=== PATIENT | female | born 1985 | race Caucasian/White ===

== ENCOUNTER 2017-10-25 06:43 | Emergency (ER) | payer BC ==
[2017-10-25] MEDS ORDERED: Aspirin 81 mg CHEW TAB* 81 MG TAB.CHEW PO ONE (07:13)
[2017-10-25 07:49] LABS: ABS Basophils 0.2 10^3/ul (0-0.2); ABS Eosinophils 0.1 10^3/ul (0-0.6); ABS Lymphocytes 2.1 10^3/ul (1.0-4.8); ABS Monocytes 0.5 10^3/ul (0-0.8); ABS Neutrophils 7.9 10^3/ul (1.5-7.7); ABS Nucleated RBC 0 10^3/ul; Eosinophil % 0.5 % (0-6); Hematocrit 38 % (35-47); Hemoglobin 12.4 g/dl (12.0-16.0); Mean Corpuscular HGB Conc 33 g/dl (31-36); Mean Corpuscular Hemoglobin 25 pg (27-31); Mean Corpuscular Volume 76 fL (80-97); Mean Platelet Volume 8.9 um3 (7.4-10.4); Nucleated Red Blood Cells % 0; Platelet Count 231 10^3/ul (150-450); Red Blood Count 5.04 10^6/ul (4.0-5.4); Red Cell Distribution Width 18 % (10.5-15); White Blood Count 10.7 10^3/ul (3.5-10.8)
[2017-10-25 07:56] LABS: INR 1.03 (0.77-1.02)
[2017-10-25 08:05] LABS: EGFR Non-African American 117.4 (>60)
--- NOTE | 2017-10-25 08:56 | RAD ---
HISTORY: Chest pain COMPARISONS: February 02, 2016 VIEWS: 4: Frontal dual-energy and lateral views of the chest. FINDINGS: CARDIOMEDIASTINAL SILHOUETTE: The cardiomediastinal silhouette is normal. MAR: The mar are normal. PLEURA: The costophrenic angles are sharp. No pleural abnormalities are noted. LUNG PARENCHYMA: The lungs are clear. ABDOMEN: The upper abdomen is clear. There is no subphrenic gas. BONES AND SOFT TISSUES: No bone or soft tissue abnormalities are noted. OTHER: None. IMPRESSION: NO ACTIVE CARDIOPULMONARY DISEASE.
[2017-10-25] MEDS ORDERED: Pantoprazole IV* 40 MG IV ONE (09:38)
[2017-10-25] MEDS ORDERED: Pantoprazole TAB (NF) 40 MG TAB PO ONE (09:45)
[2017-10-25] MEDS ORDERED: Ibuprofen TAB* 800 MG PO ONE (09:45)
[2017-10-25] MEDS ORDERED: Omeprazole CAP* 20 MG PO ONE (10:00)
[2017-10-25 10:06] VITALS: BP 113/95
--- NOTE | 2017-10-25 18:01 | ED ---
Skylar Berry Julia, scribed for Gloria Pavon MD on 10/25/17 at 0723 . HPI Chest Pain - HPI Summary HPI Summary: This patient is a 32 year old F presenting to [facility] with a chief complaint of mid-sternal chest pain since 04:30 this morning upon waking up. She states she was having difficulty getting out of bed with the onset of pain. Patient reports SOB with her chest pain. Patient denies nausea, vomiting, and diaphoresis. The patient rates the pain 8/10 in severity. SOB aggravated by walking. Pain aggravated by breathing. She states when she takes a breath it feels like someone is stabbing her or sitting on her chest. Patient has had right knee pain since 10/19/17 that feels like it will snap with walking. Pt denies hx of HTN, asthma, GERD, and DM. FMHx includes of her grandmother from cardiac disease at the age of 62. - History of Current Complaint Chief Complaint: EDChestPainROMI Hx Obtained From: Patient Onset/Duration: Started Hours Ago, Atraumatic, Still Present Time of Onset: 04:30 Timing: Constant, Lasting Hours Initial Severity: Moderate Current Severity: Moderate Pain Intensity: 8 Pain Scale Used: 0-10 Numeric Chest Pain Location: Mid Sternal Chest Pain Radiates: No Character: Heaviness, Sharp/Stabbing Aggravating Factor(s): Exertion, Deep Breaths Alleviating Factor(s): Nothing Associated Signs and Symptoms: Positive: Chest Pain, Shortness of Breath, Cough , Calf Pain/Swelling. Negative: Chills, Nausea, Vomiting, Wheezing Related History: Obesity - Allergy/Home Medications Allergies/Adverse Reactions: Allergies Allergy/AdvReac Type Severity Reaction Status Date / Time No Known Allergies Allergy Verified 10/25/17 06:49 PMH/Surg Hx/FS Hx/Imm Hx Previously Healthy: Yes Endocrine/Hematology History: Denies: Hx Diabetes, Hx Systemic Lupus Erythematosus Cardiovascular History: Denies: Hx Congestive Heart Failure, Hx Hypertension, Other Cardiovascular Problems/Disorders Respiratory History: Denies: Hx Asthma, Hx Chronic Obstructive Pulmonary Disease (COPD), Hx Pulmonary Embolism, Other Respiratory Problems/Disorders GI History: Denies: Hx Gastroesophageal Reflux Disease History: Denies: Hx Dialysis, Hx Renal Disease Musculoskeletal History: Denies: Hx Rheumatoid Arthritis - Cancer History Hx Chemotherapy: No - Surgical History Surgery Procedure, Year, and Place: appy, ., lap mayra Infectious Disease History: No Infectious Disease History: Denies: History Other Infectious Disease, Traveled Outside the [place] in Last 30 Days - Family History Known Family History: Positive: Cardiac Disease - grandmother age 62, Other - mulitple fam members requiring cholecystectomy - Social History Occupation: Employed Full-time Lives: With Family Alcohol Use: Occasionally Hx Substance Use: No Substance Use Type: Reports: None Smoking Status (MU): Former Smoker Type: Cigarettes Have You Smoked in the Last Year: No Review of Systems Negative: Fever, Skin Diaphoresis Eyes: Negative ENT: Negative Positive: Chest Pain Positive: Shortness Of Breath Negative: Abdominal Pain, Vomiting, Nausea Positive: no symptoms reported Positive: Myalgia - right knee pain Skin: Negative Neurological: Negative Psychological: Normal All Other Systems Reviewed And Are Negative: Yes Physical Exam - Summary Physical Exam Summary: Appearance: Ill-appearing, moderate pain distress, Obese, Pt speaks in full sentences, Pt is clutching anterior chest Skin: Warm, color reflects adequate perfusion Head: Normal Head/Face inspection Eyes: Conjunctiva clear ENT: Normal inspection Neck: Supple, no nodes, no JVD. Respiratory: Lungs clear, Normal breath sounds, no respiratory distress Cardio: RRR, No murmur, pulses normal, brisk capillary refill, chest pain is reproducible Abdomen: soft, nontender, no masses Bowel sounds: present Musculoskeletal: Strength Intact/ ROM intact. No edema. Right posterior calf tenderness, no swelling, no redness, no cord Psychological: Normal Neuro: Alert, muscle tone normal, no focal deficit Triage Information Reviewed: Yes Vital Signs On Initial Exam: Initial Vitals Temp Pulse Resp BP Pulse Ox 96.9 F 95 20 143/83 99 10/25/17 06:44 10/25/17 06:44 10/25/17 06:44 10/25/17 06:44 10/25/17 06:44 Vital Signs Reviewed: Yes Diagnostics - Vital Signs Vital Signs Temp Pulse Resp BP Pulse Ox 10/25/17 07:00 88 18 98 10/25/17 06:57 86 19 150/79 99 10/25/17 06:56 22 10/25/17 06:44 96.9 F 95 20 143/83 99 - Laboratory Result Diagrams: 10/25/17 07:35 10/25/17 07:35 Lab Statement: Any lab studies that have been ordered have been reviewed, and results considered in the medical decision making process. - Radiology CXR Radiology Interpretation Completed By: Radiologist - NO ACTIVE CARDIOPULMONARY DISEASE. ED Physician has reviewed this report. - EKG 0654 Cardiac Rate: NL EKG Rhythm: Sinus Rhythm - at [address] Segment: Non-Specific Ectopy: None EKG Interpretation: nml AVIVCT, nml QTc, nml axis no acute changes EKG Comparison: No Significant Change - 02/02/16 Re-Evaluation - Re-Evaluation 1 Re-Evaluation Time: 09:41 Change: Unchanged Comment: Still has discomfort. Pt is given results. Pt's is in the room. Pt is agreeable to discharge after providing medication for GERD. Pt will be given Ibuprofen and Protonix prior to discharge. 2 Re-Evaluation Time: 09:56 Change: Improved Comment: Pt would like work release for today and tomorrow and a prescription for Ibuprofen. Chest Pain Course/Dx - Course Course Of Treatment: Pt presents with CP and SOB beginning this morning. An EKG is of no acute concern. A CXR reveals no active disease or acute findings. Bloodwork is obtained and is WNL. Pt is given 800mg of Ibuprofen PO, 20mg Omeprazole, and 324mg of ASA PO. Pt declined anti-GERD medication as an RX. Results explained to patient. Lab results and CXR report are given to pt. Pt is agreeable to discharge. Pt will speak with Dr. Camilo about current symptoms and possible GERD treatment. - Chest Pain Differential Diagnosis/HQI/PQRI: Acute ID, ACS, Angina, Chest Wall, GI Disease, Lower Respiratory Infection, Pulmonary Embolism - Diagnoses Provider Diagnoses: Chest pain, GERD (gastroesophageal reflux disease), Elevated BP without diagnosis of hypertension Discharge - Sign-Out/Discharge Documenting (check all that apply): Discharge - Discharge Plan Condition: Stable Disposition: HOME Prescriptions: Ibuprofen TAB* [Motrin TAB* 800 MG] 800 mg PO Q6H #40 tab Patient Education Materials: Chest Pain (ED), Gastroesophageal Reflux Disease ( ED), Chest Wall Pain (ED) Forms: *Work Release Referrals: Adam Coronado DO [Primary Care Provider] - 2 Days Additional Instructions: Your EKG and Chest xray were normal. We have given you a copy of your labs which were also normal. We did not find a serious cause of your chest pain today that would need emergency treatment. You may have GERD causing chest pain, or musculoskeletal chest pain. You were given pantoprozole 40mg for GERD, and ibuprofen 800mg for musculoskeletal pain at 0945. Follow up with Dr. Coronado, and let him know that you had to come to the ER for chest pain. Dr. Pavon sent a prescription for ibuprofen 800mg every 6 hrs as needed #40, to your pharmacy, [facility] in [place]. Return to the ER if you have any new or worsening symptoms. - Billing Disposition and Condition Condition: STABLE Disposition: HOME The documentation as recorded by the Skylar jaime Julia accurately reflects the service I personally performed and the decisions made by , Gloria Pavon MD.
== END 2017-10-25 10:27 | disposition home or self-care (01) ==
LOC: ED 06:43
DX: R07.9 Chest pain, unspecified (principal); K21.9 Gastro-esophageal reflux disease without esophagitis; R03.0 Elevated blood-pressure reading, without diagnosis of hypertension; Z87.891 Personal history of nicotine dependence
CPT/HCPCS: 36415; 71046; 80053; 82550; 82553; 83605; 83735; 83880; 84443; 84484; 84702; 85025; 85379; 85610; 85730; 93005; 96374; 99283; A9270-GY

== ENCOUNTER 2019-04-08 08:20 | Inpatient (IN) | payer BC ==
[~2019-04-08 08:20] MED LIST: Buffered Lidocaine 1% SYRIN* 1 ML/SYRINGE INTRADERM ONE; Famotidine IV* 10 MG/ML 2 ML (20 mg) IV ONE; Lactated Ringers 1000 ML Bag* 1,000 ML IV SCH
--- OUTSIDE RECORDS SUMMARY | 2019-04-08 08:24 | XMS REPORT | Continuity of Care Document ---
:1985 External Reference #:[id number] Author Name Maggie Wray NP (transmitted by agent of provider Ann Cruz) Address [address] [facility], [address] [place] [id number] Care Team Providers Name Role Phone Adam Coronado DO - Family Care Team Information Air Conditioning Manager Medicine Problems Active Problems Provider Date Morbid obesity Tatiana Whittington MD Onset: 08/03/2015 Disturbance in sleep behavior Tatiana Whittington MD Onset: 08/03/2015 Social History Type Date Description Comments Sex Unknown ETOH Use Denies alcohol use Tobacco Use Start: Unknown Patient has never smoked Recreational Drug Use Never Used Drugs Smoking Status Reviewed: 02/24/19 Patient has never smoked Exercise Type/Frequency Exercises rarely Allergies, Adverse Reactions, Alerts Description No Known Drug Allergies Medications Active Medications SIG Qnty Indications Ordering Provider Date Mandibular Please fabricate G47.33 Maggie 02/24/2019 Advancement Device mandibular advance ALEXIS Wray device for sleep Device apnea Lo Loestrin Fe 1 by mouth per day Macarena Jay 1mg-10 MD Gabby mcg / 10 mcg Tablets Metformin HCL ER Macarena Jay MD Gabby 750mg Tablets ER 24HR Melatonex Unknown 3-10mg Tablets ER Iron 2 by mouth every Unknown 325(65Fe) mg day Tablets Immunizations CPT Code Status Date Vaccine Lot # [id number] Given 06/15/2015 Influenza Virus 3Yrs & Over Vital Signs Date Vital Result Comment 02/24/2019 1:47pm Height 61 inches 5'1" Weight 324.50 lb Heart Rate 96 /min BP Systolic Sitting 126 mmHg Lue large cuff BP Diastolic Sitting 76 mmHg Lue large cuff Respiratory Rate 24 /min O2 % BldC Oximetry 98 % On Ra BMI (Body Mass Index) 61.3 kg/m2 01/27/2019 1:41pm Height 61 inches 5'1" Weight 328.00 lb Heart Rate 88 /min BP Systolic Sitting 116 mmHg Lue large cuff BP Diastolic Sitting 74 mmHg Lue large cuff Respiratory Rate 16 /min O2 % BldC Oximetry 97 % BMI (Body Mass Index) 62.0 kg/m2 Neck Circumference in inches 17.50 Results Description No Information Available Procedures Date Code Description Status 01/28/2019 95315 Sleep Study Unattended,HRT Rate,Oxygen Sat,Resp Completed Effort/Airflow Medical Devices Description No Information Available Encounters Type Date Location Provider Dx Diagnosis Office Visit 01/27/2019 Pulmonology And Sleep Tatiana Whittington MD R06.83 Snoring 2:[facility] R53.83 Other fatigue Assessments Date Code Description Provider 02/24/2019 G47.33 Obstructive sleep apnea (adult) (pediatric) Maggie Wray NP 02/24/2019 E66.9 Obesity, unspecified Maggie Wray NP 01/28/2019 G47.33 Obstructive sleep apnea (adult) (pediatric) Tatiana Whittington MD 01/27/2019 R06.83 Snoring Tatiana Whittington MD 01/27/2019 R53.83 Other fatigue Tatiana Whittington MD Plan of Treatment 02/24/2019 - Maggie Wray NPG47.33 Obstructive sleep apnea (adult) ( pediatric)New Medication:Mandibular Advancement Device - Please fabricate mandibular advance device for sleep apneaFollow up:4-6 monthsRecommendations:We have discussed the options for treating your sleep apnea and consequences of untreated sleep apnea. We have reviewed that CPAP is the treatment of choice for moderate sleep apnea, and that the oral appliance might not adequately address your sleep apnea, however after consideration you have decidedthat you would like to proceed with this option instead of CPAP. We will give you a prescription for an oral appliance to treat your sleep apnea. This device is custom made by a dentist. You will alsobe given a list of local dentists who make these devices. Please make an appointment with one of these providers to have your device made. Once the device has been made, we test you with the device to see if it is adequately treating your sleep apnea. If you have any sleepiness while driving you MUST avoid operating a vehicle or machinery. If you feel tired while driving pullman clerk and take a nap or switch drivers. If you know you are sleepy and need to go somewhere, arrange for a ride or use public transportation. It is very important to not risk your safety or the safety of others.E66.9 Obesity, unspecifiedRecommendations:Keep up the good work with your weight loss efforts Functional Status Description No Information Available Mental Status Description No Information Available Referrals Description No Information Available
[2019-04-08] MEDS ORDERED: Heparin VIAL(*) 5000 UNITS/ML VIAL (FIVE THOUSAND) ONE (09:24)
[2019-04-08] MEDS ORDERED: ceFAZolin 1 GM ADVAN(*) 1 GM ADDV.VIAL IVPB ONE (09:24)
[2019-04-08] MEDS ORDERED: Famotidine IV* 10 MG/ML 2 ML (20 mg) ONE (09:24)
[2019-04-08] MEDS ORDERED: ceFAZolin 2 GM in NS PREMIX(*) 2 GM/100 ML BAG IVPB ONE (09:24)
[2019-04-08] MEDS ORDERED: Midazolam* 1 MG/ML 5 ML VIAL (5 MG) ONE (09:25)
[2019-04-08] MEDS ORDERED: Methylene Blue 0.5 %* 50 MG/10 ML AMP IV ONE (12:13)
[2019-04-08] MEDS ORDERED: Bupivacaine 0.25% W/EPI* 10 ML SDV ONE ×2 (12:13→12:56)
[2019-04-08] MEDS ORDERED: fentaNYL* 50 MCG/ML 2 ML VIAL (100 MCG VIAL) ONE ×2 (13:02→13:22)
[2019-04-08] MEDS ORDERED: Rocuronium* 10 MG/ML VIAL ONE (13:11)
[2019-04-08] MEDS ORDERED: Ondansetron INJ* 2 MG/ML VIAL ONE (13:28)
[2019-04-08] MEDS ORDERED: Dexamethasone IV* 4 MG/ML 1 ML (4 MG) ONE (13:28)
[2019-04-08] MEDS ORDERED: DiMENhydriNATE IV* 50 MG/ML VIAL ONE ×2 (13:28→18:06)
[2019-04-08] MEDS ORDERED: Succinylcholine* 20 MG/ML 10 ML VIAL ONE (13:28)
[2019-04-08] MEDS ORDERED: Ketorolac INJ* 30 MG/ML 1 ML VIAL ONE (13:28)
[2019-04-08] MEDS ORDERED: Propofol* 10 MG/ML 20 ML BTL ONE (13:28)
[2019-04-08] MEDS ORDERED: Scopolamine 1.5 mg* PATCH ONE (13:29)
[2019-04-08] MEDS ORDERED: Lidocaine 2% PF * 5 ML VIAL ONE (13:29)
[2019-04-08] MEDS ORDERED: DiMENhydriNATE IV* 50 MG/ML VIAL IV PUSH PRN (13:55)
[2019-04-08] MEDS ORDERED: Naloxone* 0.4 MG/ML 1 ML VIAL IV PRN (13:55)
[2019-04-08] MEDS ORDERED: Acetaminophen IV 1GM/100ML * 100 ML ONE (13:56)
[2019-04-08] MEDS ORDERED: HYDROmorphone INJ1* 1 MG/ML SYRINGE ONE ×2 (14:01→17:16)
[2019-04-08] MEDS ORDERED: Labetalol IV* 5 MG/ML 20 ML VIAL ONE (14:40)
[2019-04-08] MEDS ORDERED: Sugammadex * 500 MG/5 ML VIAL IV PUSH ONE (17:17)
--- NOTE | 2019-04-08 17:44 | OP ---
Operative Report - Blank - Operative Report Date of Operation: 04/08/19 Note: Pre-OP Diagnoses: Clinically severe obesity Post-op Diagnosis: same Procedure: Laparoscopic Zana an Y gastric bypass Surgeon: Jorge Asst: Luna Anethesia: SUNSHINE Rico EBL: 150cc IVF: 2500cc LR Specimen: none Drains: #10 ADOLPH
[2019-04-08] MEDS ORDERED: Lactated Ringers 1000 ML Bag* 1,000 ML IV SCH (18:00)
[2019-04-08] MEDS: HYDROmorphone INJ1* 1 MG/ML SYRINGE IV PRN ×3 (18:20→18:55)
[2019-04-08] MEDS: Famotidine IV* 10 MG/ML 2 ML (20 mg) IV SLOW PU SCH (20:31)
[2019-04-08] MEDS: Ketorolac INJ* 30 MG/ML 1 ML VIAL IV SCH (20:31)
[2019-04-08] MEDS: Ondansetron INJ* 2 MG/ML VIAL IV PRN (20:32)
[2019-04-08] MEDS: HYDROmorphone INJ1* 1 MG/ML SYRINGE IV SLOW PU PRN (22:05)
--- NOTE | 2019-04-09 00:32 | OP ---
CC: [facility]; Primary Care Doctor; Dr. Adam Coronado * DATE OF OPERATION: 04/08/19 - ROOM #352 DATE OF : 83 SURGEON: Dr. Patel. WIRELESS CONSULTANT: Dr. Carrasco ANESTHESIOLOGIST: Dr. Rico. ANESTHESIA: General. PRE-OP DIAGNOSIS: Clinically severe obesity. POST-OP DIAGNOSIS: Clinically severe obesity. OPERATIVE PROCEDURE: Laparoscopic Zana-en-Y gastric bypass. ESTIMATED BLOOD LOSS: 150 cc. SPECIMEN: None. IV FLUIDS: 2500 cc of crystalloid fluid given. DRAINS: #10 ADOLPH drain left at the gastrojejunostomy. COMPLICATIONS: Intraoperative revision of gastrojejunostomy. DESCRIPTION OF PROCEDURE: Ms. Schilling was identified in the preoperative area. She was marked. Consent was signed. She was taken to the operating room, placed on the operating table in the supine position. Preoperative antibiotics were given. Sequential devices were placed on bilateral lower extremities. General anesthesia was induced. The patient's abdomen was prepped and draped in the standard surgical fashion. A time-out was performed. Folds of the umbilicus were elevated anteriorly and a Veress needle was inserted into the abdominal cavity which was then allowed to insufflate to a pressure of 15 mmHg. The patient tolerated the insufflation well. A 12 mm optical trocar was then placed along the upper midline and laparoscope was inserted through this. There was no evidence of injury from the trocar insertion or from the Veress needle which was then removed. Additional trocars were then placed in the following position: A 12 mm and a 5 mm in the left upper quadrant, 12 mm and 5 mm in the right upper quadrant. Review of the abdomen showed no omental attachments. The omentum was placed superiorly and we made a decision if we are going to require splitting the omentum, but made the decision not to. We then placed the table in steep reverse Trendelenburg. A Nickolas retractor was inserted through a subxiphoid incision and liver was retracted anteriorly into the right. With the liver retractor in, we were able to bluntly dissect the gastroesophageal fat pad both inferiorly and to the right and exposed the left crura. We then made a stomach pouch starting about proximally the third crossing vessel, although there was significant investing fat on the lesser curvature of the stomach. We were able to place a 45 mm hendricks MERLYN stapling device through this portion of the stomach and completed the stomach pouch with 2 additional 60 mm hendricks MERLYN stapling devices. The pouch appeared appropriately sized. The last staple line was fired with a 32- Luxembourger Savita tube in place. Attention was then turned towards to the transverse colon which was reflected anteriorly and ligament of ligament of Treitz identified. Approximately 50 cm was counted off from the ligament of Treitz, and in the appropriate orientation , a window was made through the mesentery and the bowel was brought in apposition to the small stomach pouch. Utilizing 2-0 silk sutures, we tacked what would be the proximal Zana limb to the lateral staple edge of the stomach pouch with 3 individual sutures. Next, with the 32-Luxembourger tube in place which seemed to want to go posteriorly, we did make an anterior incision gastrotomy through the stomach pouch. This had significant amount of bleeding and we could see off the inferior edge of our gastrotomy. It was difficult to gain hemostasis at this point and rather we just held pressure at this site. An enterotomy was made as well on the antimesenteric portion of the small bowel and the two were mated with 30 mm hendricks MERLYN stapling device. I placed this in at approximately 2 cm and then fired the stapler to make the gastrojejunostomy. At this point, the bleeding at the gastrotomy site was showing some improvement. We were able to look inside the anastomosis at this point and hold pressure on the bleeding area. The staple line proved we only fired just under 2 cm of the full stapler, and when looking into the anastomosis, it appeared that this would be not a large enough gastro-jejunostomy. With the bleeding on the inferior edge of the gastrotomy and the enterotomy appearing larger when we made attempts to evaluate, I felt it would be best to transect this attempted anastomosis before closure of the common defect. We cut the small bowel off the stomach pouch and clamped it at the opening. We then identified the open portion of the gastrotomy along with the short portion of the staple line and placed an additional 60 mm hendricks MERLYN stapling device adjacent to the previous staplers, but to obliterate this opening. The anterior aspect of the stomach would still be useful in creating anastomosis. The Savita tube appeared to want to go posteriorly, but after clearing the additional fat on the lesser curvature we could see good intact stomach and made the decision to perform a hand sewn anastomosis. We transected the omega loop through healthy tissue and allowed the biliary pancreatic limb to fall away. We then undercut the mesentry where our enterotomy was and with 60 mm hendricks MERLYN stapling fired through healthy small bowel tissue that would later become the new Zana limb and placed the small portion of small bowel into an endoscopic retrieval bag and removed it. We had also removed the small portion of the stomach as well. These were not passed off as specimen. We ran the Zana limb distally to ensure that this was the Zana limb and it was in an appropriate orientation. I placed a marking stitch at this site. We then placed the table back to a neutral position. Again, I identified the ligament of Treitz and assured that we knew which one was biliary pancreatic limb and which would be Zana limb. These were intact without bleeding or injury. At this point, I did make the decision to split the omentum. Just at the transverse colon, we made a window through the greater omentum and split this with the LigaSure device right up to the gastric pouch. Next, the Zana limb was brought in apposition to the inferior aspect of the stomach pouch. Posterior row of sutures using 2-0 silks were made. A gastrotomy was then made over the stomach, over the 32-Luxembourger OG tube and enterotomy made as well. We then completed the anterior aspect of the anastomosis with a single row of 2-0 silk sutures. The anastomosis allowed the tube to place through and into the Zana limb. The [place] portion of the Zana limb appeared to be only about 2 cm. Next, with the bowel clamped distal to the tubing, methylene blue dye test was performed. The small bowel was instilled with blue dye. The Savita tube was then backed into the stomach and blue dye suctioned out by the anesthesiologist. There was no evidence of blue dye around the anastomosis. Next, the Zana limb was counted off approximately 100 cm and an enterotomy was made. This was made into the biliary pancreatic limb with a 60 mm hendricks MERLYN stapling device. We closed the common defect with 2-0 silk sutures, and similarly, the mesenteric defect was closed. Review of the abdomen showed that there was no bleeding. The Nickolas retractor was removed. The OG tube was removed by the anesthesiologist as well. I decided to place a #10 ADOLPH drain that was brought in through the left lateral most port and placed over the anastomosis. The abdomen was allowed to collapse. Trocars were removed under direct vision. The remaining 5 skin incisions were reapproximated with 4-0 Monocryl subcuticular sutures and the ADOLPH was sutured to the skin with 3-0 Prolene suture. Sterile dressing was applied. The patient was woken up and transferred to the PACU in stable condition. [id number]/[facility] #: [id number] [facility]
[2019-04-09] MEDS: Ketorolac INJ* 30 MG/ML 1 ML VIAL IV SCH ×4 (03:08→22:34)
[2019-04-09] MEDS: HYDROmorphone INJ1* 1 MG/ML SYRINGE IV SLOW PU PRN ×3 (05:18→18:23)
[2019-04-09] MEDS: Heparin VIAL(*) 5000 UNITS/ML VIAL (FIVE THOUSAND) SUBCUT SCH ×3 (06:23→22:34)
[2019-04-09] MEDS: Famotidine IV* 10 MG/ML 2 ML (20 mg) IV SLOW PU SCH ×2 (09:43→22:34)
--- NOTE | 2019-04-09 11:31 | PN ---
Progress Note - Progress Note Date of Service: 04/09/19 SOAP: Subjective: Pt seen and examined. Feeling well. abdo pain , no flatus, no nausea Objective: Temp Pulse Resp BP Pulse Ox 98.1 F 80 16 92/43 97 04/09/19 08:33 04/09/19 08:33 04/09/19 08:33 04/09/19 08:33 04/09/19 08:33 a and o x3, nad lungs clear ado: soft/ ND/ incisional tenderness ADOLPH serosang ext wnl UGI P Assessment: POD1 rygb Plan: UGI clears today CBC in am OOB GI dvt proph
[2019-04-09] MEDS: Ondansetron INJ* 2 MG/ML VIAL IV PRN (11:38)
[2019-04-09] MEDS: D5W 1/2 NS KCl 20 Meq 1000 ML* 1,000 ML IV SCH (18:00)
[2019-04-10] MEDS: D5W 1/2 NS KCl 20 Meq 1000 ML* 1,000 ML IV SCH ×2 (02:34→10:32)
[2019-04-10] MEDS: Ketorolac INJ* 30 MG/ML 1 ML VIAL IV SCH ×3 (02:35→14:36)
[2019-04-10 04:49] LABS: ABS Basophils 0.1 10^3/ul (0-0.2); ABS Lymphocytes 2.5 10^3/ul (1.0-4.8); ABS Monocytes 0.7 10^3/ul (0-0.8); ABS Neutrophils 6.8 10^3/ul (1.5-7.7); Eosinophil % 0.4 %; Hematocrit 34 % (35-47); Hemoglobin 11.1 g/dL (12.0-16.0); Lymphocyte % 24.9 %; Mean Corpuscular HGB Conc 32 g/dL (31-36); Mean Corpuscular Hemoglobin 25 pg (27-31); Mean Corpuscular Volume 78 fL (80-97); Mean Platelet Volume 9.5 fL (7.4-10.4); Nucleated Red Blood Cells % 0.1; Platelet Count 184 10^3/uL (150-450); Red Blood Count 4.38 10^6 /uL (3.70-4.87); Red Cell Distribution Width 18 % (10-15); White Blood Count 10.1 10^3/uL (3.5-10.8)
[2019-04-10] MEDS: Heparin VIAL(*) 5000 UNITS/ML VIAL (FIVE THOUSAND) SUBCUT SCH ×2 (05:40→14:35)
[2019-04-10] MEDS: Famotidine IV* 10 MG/ML 2 ML (20 mg) IV SLOW PU SCH (08:51)
[2019-04-10] MEDS ORDERED: Influenza VAC *QUAD* 2019-20* 0.5 ML SYRINGE IM ONE (09:00)
[2019-04-10 15:43] VITALS: BP 126/54
--- NOTE | 2019-04-10 23:54 | DS ---
CC: Primary Care Doctor; [facility] * DISCHARGE SUMMARY: DATE OF ADMISSION: 04/08/19 DATE OF DISCHARGE: 04/10/19 HISTORY: Ms. Schilling is a 33-year-old female admitted on same-day surgery and underwent laparoscopic Zana-en-Y gastric bypass procedure. Please see operative report for details. The patient's OR course was complicated with a revision of the gastrojejunostomy, up in a 4 hour procedure. The patient did well on the postoperative period and was transferred to the short-stay unit. The patient was ambulatory. Urinating on her own. She underwent upper GI study on postoperative day #1. After the results of the study, the patient was started on clear diet that she tolerated. She continued to have upper abdominal pain that was treated with narcotics and Toradol. She was given subcu heparin. By postoperative day #2, the patient showed some improvement. She was taking minimal amount of oral intake, but pain was improving. PHYSICAL EXAMINATION: On day of discharge, she was afebrile at 98.1, blood pressure 126/54, heart rate 86, O2 sat 100% on room air. Alert and oriented x3 , in no apparent distress. Lungs: Clear to auscultation bilaterally. Abdomen : Soft, obese, tender in the epigastrium without rebound. DAOLPH drain in place with serous output that was removed. Dressings removed, which showed no erythema at the incision sites. Extremities: Within normal limits, without calf tenderness. IMPRESSION: On postoperative day #2, Zana-en-Y gastric bypass anastomosis of the ADOLPH drain that was removed on postop day #2 for planned discharge home. She will start a bariatric diet and followup in my office on Saturday with me. She understands she can contact our office should there be any changes. If there are any concerns, my flight operation coordinator will reach out to her tomorrow on telephone and the patient is aware this. I did give her a prescription of omeprazole to send to her pharmacy. She will resume her vitamins, but stop her metformin. The patient is discharged home in stable condition. [id number]/[facility] #: [id number] MTDD
== END 2019-04-10 17:20 | disposition home or self-care (01) | DRG 403 ==
LOC: AA 08:20 → SSU 19:55
PROVIDERS: ADMIT Surgery; ATTEND Surgery
PROC: 0D164ZA Bypass Stomach to Jejunum, Percutaneous Endoscopic Approach (ICD-10-PCS; principal; 2019-04-08 10:45)
DX: E66.01 Morbid (severe) obesity due to excess calories (principal); E28.2 Polycystic ovarian syndrome; R73.03 Prediabetes; G47.33 Obstructive sleep apnea (adult) (pediatric); E55.9 Vitamin D deficiency, unspecified; E61.1 Iron deficiency; Z68.44 Body mass index [BMI] 60.0-69.9, adult; Z79.84 Long term (current) use of oral hypoglycemic drugs; Z79.899 Other long term (current) drug therapy; Z83.3 Family history of diabetes mellitus; Z82.49 Family history of ischemic heart disease and other diseases of the circulatory system; Z82.3 Family history of stroke; Z80.9 Family history of malignant neoplasm, unspecified
CPT/HCPCS: 36415; 43644; 74246; 81025; 85025; 90686; A9270-GY; C1776; J0330; J0690; J1100; J1170; J1240; J1644; J1885; J2250; J2405; J2704; J3010

== ENCOUNTER 2019-08-28 08:09 | Day surgery (SDC) | payer BC ==
[~2019-08-28 08:09] MED LIST changes: -Famotidine IV* 10 MG/ML 2 ML (20 mg) IV ONE
[2019-08-28] MEDS ORDERED: Buffered Lidocaine 1% SYRIN* 1 ML/SYRINGE INTRADERM ONE (09:01)
[2019-08-28] MEDS ORDERED: Naloxone* 0.4 MG/ML 1 ML VIAL IV PRN (10:16)
[2019-08-28] MEDS ORDERED: Propofol* 10 MG/ML 20 ML BTL ONE (10:27)
[2019-08-28 11:43] VITALS: BP 115/77
--- NOTE | 2019-08-30 15:15 | PRO ---
CC: Dr. Adam Coronado; Dr. Patel * DATE OF PROCEDURE: 08/28/19 [facility] PROCEDURE: Upper endoscopy to jejunum. REFERRING PROVIDERS: Dr. Adam Coronado and Dr. Patel. INDICATION: The patient underwent Zana-en-Y gastric bypass in April with Dr. Patel. Since this time, she has been having dysphagia and chest pressure. Spontaneous reflux was noted on upper GI series, although there was no narrowing at the anastomosis seen. The patient continues to feel nausea with vomiting, sense of chest pressure and sensation of food getting stuck. She has been on omeprazole 20 mg twice daily for the past few weeks. MEDICATIONS GIVEN: By Anesthesia. DESCRIPTION OF PROCEDURE: Full disclosure of risks was reviewed with the patient as detailed on the consent form. The patient was placed in the left lateral decubitus position and monitored with continuous pulse oximetry, capnography, interval blood pressure monitoring, and direct observation. A bite -block was placed between the patient's teeth. An adult gastroscope was then inserted into the patient's mouth and advanced down the esophagus, into the stomach, and into the distal duodenum. Findings and interventions are described below. FINDINGS: Esophagus was a normal tubular structure without rings or strictures. GE junction occurred at 33 cm and was essentially regular. Scope was then advanced into the gastric pouch. There was a dimpled portion in the gastric pouch, although there was no fistula. No ulcers or erosions. Pouch measured approximately 4 cm in size. Biopsy was obtained for histologic evaluation. Scope was then advanced to the anastomotic ring. This occurred at 37 cm. There were multiple areas of visible suture particularly along the inferior portion of the anastomotic ring as well as the superior portion. There were several small ulcers surrounding the suture material. No fresh or old blood seen. The ulcers did appear to be on the gastric side of the anastomosis, again around the suture material. I did not visualize any ulcers on the jejunal side of the anastomosis. Scope was then advanced into the blind limb. Scope was then also advanced into the Zana limb x30 cm. Mucosa appeared normal. Biopsies were obtained for histologic evaluation. Scope was then withdrawn back to the anastomosis. There did appear to be some fluid accumulating in the blind limb that is a bit more than typically seen in this area. No food debris in this area noted. Scope was then withdrawn back into the esophagus where biopsies were obtained from the mid and distal esophagus given the dysphagia complaints without any endoscopic correlate. Scope was then withdrawn from the patient. The patient tolerated the procedure well and was recovered in the GI recovery area. IMPRESSION: 1. Complete upper endoscopy through gastrojejunal anastomosis to jejunum. 2. A few small anastomotic ulcers along the areas of visible suture material. 3. Some fluid accumulation in the blind limb. FOLLOWUP: 1. Await pathology. 2. We would increase to Nexium 40 mg twice daily. 3. Tentatively plan for repeat scope in 2 months to reassess for ulcers, which will hopefully have healed at that time. If there is persistent ulceration, then we could consider referral to advanced endoscopy for potential endoscopic resection of the suture material. 4. Continue to avoid NSAIDs. 5. The patient will contact clinic in the next few weeks or so with a symptom update. Thank you very much for this referral. [id number]/[facility]PS #: [id number] MIKA
== END 2019-08-28 12:35 | disposition home or self-care (01) ==
LOC: OR 08:09
PROVIDERS: ATTEND Internal Medicine Gastroenterology
DX: R13.10 Dysphagia, unspecified (principal); R11.2 Nausea with vomiting, unspecified; Z98.84 Bariatric surgery status; K21.9 Gastro-esophageal reflux disease without esophagitis; Z68.43 Body mass index [BMI] 50.0-59.9, adult; R07.89 Other chest pain; E11.9 Type 2 diabetes mellitus without complications; N91.2 Amenorrhea, unspecified; R89.6 Abnormal cytological findings in specimens from other organs, systems and tissues
CPT/HCPCS: 36415; 81025; 84702; 88305; 88342; J2704